=== PATIENT | female | born 2000 | race Caucasian/White ===

== ENCOUNTER → 2024-10-19 09:13 | Outpatient (REF) | payer OTHER, SELFPAY | LOC: UCDH 09:13 | PROVIDERS: ATTENDING PHYSICIAN Emergency Medicine; FAMILY PHYSICIAN Family Medicine | DX: J45.40 Moderate persistent asthma, uncomplicated (principal) | CPT/HCPCS: 71046 ==

== ENCOUNTER 2025-09-17 20:43 | Emergency (ER) | payer OTHER, SELFPAY ==
[2025-09-17 20:45] VITALS: BP 167/103
--- NOTE | 2025-09-17 23:27 | ED.SKININJ ---
HPI-Injury
General
Chief Complaint: Bite
Source: patient
Exam Limitations: none
Time Seen by Provider: 09/17/25 22:51
Nursing documentation reviewed up to this point in time: agreed with
History of Present Illness-Injury
Initial Injury comments:
Note:
CHIEF COMPLAINT(S)
Dog bite to the right hand.
HISTORY OF PRESENT ILLNESS
The patient is a 25-year-old female who presents with a dog bite to the dorsum of her right hand. The incident involved her own dog, which is confirmed to be up-to-date with vaccinations. The patient describes the bite area as numb, and she
attributes this sensation as possibly normal under the circumstances. She estimates that her condition is about 50% improved from the initial event. She is currently . The patient reports an abrasion on the palmar side adjacent to the
bite site. Her last tetanus shot was approximately two years ago.
ALLERGIES
Penicillin. The patient is unsure of the specific reaction but is aware of an allergy to penicillin.
PHYSICAL EXAM
General: Alert, no acute distress.
Skin: Warm, dry.
Head: Normocephalic, atraumatic.
Neck: Supple, trachea midline.
Eye Ears, nose, mouth and throat: Oral mucosa moist.
Respiratory: Respirations are non-labored.
Back: Normal range of motion, Normal alignment.
Musculoskeletal: Normal ROM, normal strength. Good capillary refill
Neurological: Alert and oriented to person, place, time, and situation, No focal neurological deficit observed.
Psychiatric: Cooperative, appropriate mood & affect.
PROBLEM LIST
Acute Problem:
- Dog bite to the right hand. Wound was thoroughly cleaned and irrigated
PLAN
Considering the patient�s status and penicillin allergy, Augmentin should be avoided. The tetanus prophylaxis was last updated two years ago, so it is not immediately required but should be considered in future assessments.
DIFFERENTIAL DIAGNOSIS
The Differential Diagnosis includes, in no particular order and is not limited to:
- Infection of the dog bite wound
- Localized nerve injury from the bite
- Potential tendon or underlying structural damage
- Traumatic neuroma
- Rhabdomyolysis
- Cellulitis
- Abscess formation
- Crush injury
- Osteomyelitis
- Joint infection
Disposition:
SUMMARY OF ENCOUNTER
The 25-year-old female patient presented to the emergency department due to a dog bite on the dorsum of her right hand. Upon examination, the wound appears clean without significant complications. The patient recently received a tetanus shot
approximately two years ago. She has a known allergy to penicillin with an unspecified reaction and is currently . Due to these considerations, an infectious disease specialist, Dr. Carroll Del Castillo, was consulted for antibiotic
recommendations, and clindamycin was advised as the appropriate treatment.
DISPOSITION
Patient to be discharged home.
ASSESSMENT
The patient presents with a clean dog bite on her right hand. Given her status, penicillin allergy, and updated tetanus prophylaxis, alternative antibiotic therapy with clindamycin is indicated to address any potential infection.
PLAN
The patient will initiate antibiotic therapy with clindamycin due to penicillin allergy and status, and she is advised to monitor the wound closely. Instructions to follow up with her primary care physician or return to the emergency
room for a wound check on Tuesday have been provided.
PATIENT EDUCATION AND COUNSELING
The patient was informed about the signs of infection she should observe, the importance of the wound check, and the proposed follow-up with her primary care physician or a return to the emergency department if necessary.
FOLLOW-UP INSTRUCTIONS
The patient is advised to follow up with her family doctor or return to the emergency room for a wound check on Tuesday.
MEDICATION RECONCILIATION
Clindamycin is prescribed as the antibiotic treatment, considering the patients penicillin allergy and status.
MEDICAL DECISION MAKING
-Complexity of Data Reviewed:
Chronic conditions affecting care include long QT syndrome.
The differential diagnosis considered includes:
- Infection of the dog bite wound
- Localized nerve injury from the bite
- Potential tendon or underlying structural damage
- Traumatic neuroma
- Rhabdomyolysis
- Cellulitis
- Abscess formation
- Crush injury
- Osteomyelitis
- Joint infection
-Data:
Category 3:
Discussion of management with Dr. Carroll Del Castillo, an infectious disease specialist, who recommended clindamycin due to the patients specific medical needs.
DIAGNOSIS
Dog bite to the right hand (ICD-10: W54.0XXA)
Penicillin allergy (ICD-10: Z88.0)
Past History
Past History
ED Past Medical History: Asthma, NIDDM and Other
ED Past Surgical History: Gynecological and Tonsilectomy
Social History
Tobacco: Non-smoker
Alcohol: None
Drug: None
Personal: Single
Living: with family
Employment: Employed
Family History
Family History: Other
Phy Exam
Physical Exam
Physical Exam:
.
Course
Orders/Labs/Results
Orders:
Orders
09/17/25 23:20
Clindamycin HCl [Cleocin] 300 mg PO NOW STA
09/17/25 23:22
Tetanus/Diphth/Acelpertussis [Adacel] 0.5 ml IM .ONCE ONE
Vital Signs
Initial and Last Documented VS:
Initial Vital Signs
Temp Pulse Resp BP Pulse Ox
98.1 F 84 18 167/103 95
09/17/25 20:45 09/17/25 20:45 09/17/25 20:45 09/17/25 20:45 09/17/25 20:45
Last Documented Vital Signs
Temp Pulse Resp BP Pulse Ox
98.1 F 89 18 167/103 96
09/17/25 20:45 09/17/25 23:44 09/17/25 23:44 09/17/25 20:45 09/17/25 23:44
*Pulse Oximetry
SaO2: 95
Oxygen Mode of Delivery: Room air
Patient hypoxic: no
*Critical Care Note
Total Time (30-74mins, 75-104mins- exclusive of procedures): Not Applicable
ED Attending Note
-
Portions of this chart may have been created with voice recognition software.� Occasional wrong word or��sound alike� substitutions may have occurred due to the inherent limitations of voice recognition software.
Discharge Plan
Departure
Patient Disposition: Home (Routine Discharge)
Date of Disposition: 09/17/25
Time of Disposition: 23:29
Patient with high blood pressure during this ER visit?: Yes
Discharge Problem:
Dog bite
Instructions: Animal Bites (DC), Wound Care (DC)
Prescriptions:
New
clindamycin HCl [Cleocin HCl] 300 mg capsule
300 mg PO TID 10 Days Qty: 30 0RF
No Action
cetirizine [Zyrtec] 5 MG tablet
5 mg PO HS
metformin 500 MG tablet
500 mg PO BID
albuterol sulfate 1 PUFF HFA aerosol inhaler
2 puff inhalation R Q4HPRN PRN (Reason: sob/wheezing)
spironolactone 50 MG tablet
50 mg PO BID
dextroamphetamine-amphetamine [Adderall XR] 15 MG capsule,extended release 24hr
20 mg PO DAILY
etonogestrel-ethinyl estradiol [NuvaRing] 1 VAG.RING ring
1 vag.ring VG . DIRECTED
albuterol sulfate 2.5 MG/3 ML solution for nebulization
2.5 mg inhalation R Q4HPRN PRN (Reason: SOB, wheezing) Qty: 1 0RF
ondansetron 4 MG tablet,disintegrating
4 mg PO Q8HPRN PRN (Reason: Nausea/Vomiting) Qty: 10 0RF
albuterol sulfate 5 MG/ML solution for nebulization
5 mg inhalation Q4HPRN Qty: 100 0RF
ondansetron 4 mg Tablet,Disintegrating
4 mg PO TIDPRN PRN (Reason: nausea/vomiting) Qty: 12 0RF
Referrals:
Shi Vasquez MD [Family Provider, [facility]]
Activity Restrictions/Additional Instructions:
Your prescriptions were sent electronically to the pharmacy that you specified.
It is important that you get a wound check in 2 days. You could either come back to the emergency department or follow-up with your family doctor.
Thank You for choosing [facility].
It was a pleasure meeting you and taking part in your care. We hope for your continued healing and wellness.
Please read discharge instructions in their entirety. However, they are for general education and may not describe your exact diagnosis at discharge. Information on your ER visit and medical conditions were discussed with you along with appropriate
follow up information...
If indicated, please take your medications as instructed and indicated on discharge paperwork.
Please schedule a follow up appointment as directed. Call to schedule an appointment
Please return to the emergency department with ANY change in, persisting, or worsening of symptoms. If any of your symptoms do not improve, or persist, or become more severe within 6-12 hours, please return to the emergency department for further
care.
Please return to the emergency department if you develop a headache, neck pain/stiffness, fever greater than 100.4F, chest pain, shortness of breath, persistent nausea, vomiting, slurred speech, difficulty walking, numbness/tingling, weakness, signs
of infection or any other symptoms that are worrisome to you.
If you have any questions or concerns please do not hesitate to call the Hospital at .
Interventions
Interventions:
*Risk Screen - Suicide Last Done: 09/17/25 20:45
*General Assessment Last Done: 09/17/25 23:03
*Neglect/Abuse Screening Last Done: 09/17/25 20:45
*ED- Fall Risk Assessment Last Done: 09/17/25 23:03
*ED COVID-19 Vaccine History Last Done: 09/17/25 23:03
*ED Influenza Vaccine History Last Done: 09/17/25 23:03
*Nursing Disposition Last Done: 09/17/25 23:44
ED-Skin Assessment Last Done: 09/17/25 22:45
Discharge Date and Time
Discharge Date/Time: 09/17/25 23:45
Print Language: QATARI
[2025-09-17] MEDS: CLEOCIN 300 MG PO (23:31)
[2025-09-17] MEDS: ADACEL 0.5 ML IM (23:32)
== END 2025-09-17 23:45 | disposition home or self-care (01) ==
LOC: EMR 20:43
PROVIDERS: EMERGENCY PHYSICIAN Student in an Organized Health Care Education/Training Program; FAMILY PHYSICIAN Family Medicine
DX: S61.451A Open bite of right hand, initial encounter (principal); W54.0XXA Bitten by dog, initial encounter; E11.9 Type 2 diabetes mellitus without complications; J45.909 Unspecified asthma, uncomplicated; Z23 Encounter for immunization; Z79.84 Long term (current) use of oral hypoglycemic drugs; Z88.0 Allergy status to penicillin
CPT/HCPCS: 99283; 90471; 90715